=== PATIENT | male | born 1970 | race Caucasian/White ===

== ENCOUNTER 2023-01-09 07:39 | Observation (INO) | payer BC, SELFPAY ==
[2023-01-09] VITALS (27 sets, daily range): BP systolic 113–145; BP diastolic 76–109; PULSE 92–125; RESP 12–50; TEMP 36.6–37.2; O2SAT 94–100; BMI 27.4
--- NOTE | ~2023-01-09 | XR_ITS ---
EXAMINATION: XR chest 1V portable DATE: 01/09/2023 09:28 INDICATION: Dyspnea. TECHNIQUE: A single frontal view of the chest was obtained. COMPARISON: CT abdomen and pelvis 01/09/2023 FINDINGS: The chest demonstrates clear lungs without pneumonia, pleural effusion, or pneumothorax. Th e heart size is normal. Median sternotomy wires and mediastinal surgical clips are seen, likely from prior coronary artery bypass grafting. IMPRESSION: 1. No acute cardiopulmonary disease. Reviewed, dictated and finalized at location A.
--- NOTE | ~2023-01-09 | CT_ITS ---
EXAMINATION: CT abdomen pelvis w con DATE: 01/09/2023 09:17 INDICATION: Abdominal pain TECHNIQUE: Computed tomography (CT) of the abdomen and pelvis was performed with 100 mL Omnipaque-350 intravenous contrast. Automated exposure control and iterative reconstruction technique were employe d. The dose-length product was 505.13 mGy-cm. COMPARISON: None FINDINGS: Lung bases are clear. Heart size is normal. Aortic valve calcification. No pericardial or pleural eff usion. Median sternotomy wires likely related to coronary artery bypass grafting. Small sliding-type hiatal hernia. Small calcified paraesophageal lymph node consistent with old granulomatous disease. P rominent diffuse hepatic steatosis. Suggestion of a few tiny gallstones layering in the dependent nec k of the otherwise normal-appearing gallbladder with no wall thickening or cholecystic inflammatory s tranding. Spleen, pancreas, bilateral adrenal glands and kidneys are normal. Postoperative change of prior appendectomy with suture line along the tip the cecum. No bowel obstruction. Bladder is normal. No free intraperitoneal gas or fluid. No pathologically enlarged abdominal or pelvic lymphadenopathy . L5 spondylolysis with bilateral pars intra-articular is defects and 7 mm anterolisthesis L5 on S1. IMPRESSION: 1. No acute intra-abdominal/pelvic process. 2. Small sliding-type hiatal hernia. 3. Suggestion of tiny gallstones at the dependent neck of the gallbladder without findings of acute c holecystitis or biliary ductal dilation. Reviewed, dictated and finalized at location B. IMPRESSION: 1. No acute intra-abdominal/pelvic process. 2. Small sliding-type hiatal hernia. 3. Suggestion of tiny gallstones at the dependent neck of the gallbladder witho ut findings of acute cholecystitis or biliary ductal dilation.
--- NOTE | ~2023-01-09 | CT_ITS ---
EXAMINATION: CT brain wo con DATE: 01/09/2023 11:56 INDICATION: Altered mental status TECHNIQUE: Computed tomography (CT) of the head was performed without intravenous contrast. Sagittal and coronal reconstructions were performed. The mA was adjusted according to patient size. Iterative reconstruction technique was employed. The dose-length product was 681.00 mGy-cm. COMPARISON: None FINDINGS: No acute intracranial hemorrhage, acute infarction or abnormal extra axial fluid collection. There is mild scattered white matter hypoattenuation consistent with chronic small vessel ischemic disease. Ventricles are normal and symmetric. No mass/mass effect. Scattered mild mucosal thickening in the pa ranasal sinuses. The orbits and mastoid air cells are normal. IMPRESSION: 1. Mild scattered white matter hypoattenuation consistent with chronic small vessel ischemic disease. No other acute intracranial process. Reviewed, dictated and finalized at location B. IMPRESSION: 1. Mild scattered white matter hypoattenuation consistent with chronic small ve ssel ischemic disease. No other acute intracranial process.
--- NOTE | ~2023-01-09 | US_ITS ---
US abdomen limited INDICATION: Elevated liver function tests. PROCEDURE: Realtime right upper abdominal ultrasound. Study limited due to patient immobility and francisco ble to roll and decubitus view COMPARISON: No prior studies for comparison. FINDINGS: The pancreas is normal without focal mass or pancreatic ductal dilation. Liver echotexture is increased, consistent with fatty infiltration. There is normal directional flow in the portal ve in. There are possible gallstones, although evaluation limited due to immobility. Common bile duct measu res 2.5 mm. No sonographic Nava's sign. IMPRESSION: 1: Possible cholelithiasis. Limited study. 2: Hepatic steatosis. Reviewed, dictated and finalized at location A.
--- NOTE | 2023-01-09 07:47 | ED.GENADULT ---
HPI - General Adult General Chief complaint: Arrhythmia/Palpitations Stated complaint: increased HR Source: RN notes reviewed History of Present Illness HPI narrative: Patient presents emergency department from job interview via EMS for heart palpitations and shaking. Patient states he is from [facility] and came to the area to work at the [employer]. States that the work at the [employer] you have to have a physical evaluation screening patient had gone to his screening and was noted to have tremoring and shaking and states he had a heart palpitations and felt weak at that time was transported emergency department for further evaluation. Patient states that he has been having shaking his arms and his legs he denies any vision changes he denies any numbness or tingling he denies any chest pain shortness of breath abdominal pain nausea vomiting diarrhea. The patient does states he has a history of alcohol use and drinks approximately 4-6 beers daily but drinks heavier on the weekends states that he quit drinking 2 months ago. He states that you cannot have any signs of alcohol use or smell like alcohol when you go for your job interview he states he has not worked for the past 4-month Related Data Allergies Allergy/AdvReac Type Severity Reaction Status Date / Time No Known Allergies Allergy Verified 01/09/23 07:52 Review of Systems Review of Systems: Gen.: Denies fevers or chills Eyes: Denies eye pain or visual change ENT: Denies congestion Respiratory: Denies shortness of breath or cough CV: Denies chest pain or palpitations GI: Denies abdominal pain nausea, emesis or diarrhea Musculoskeletal: Denies back pain or muscle pain Neuro: See HPI Skin: Denies rash Except as documented, all other systems reviewed and negative [facility] Past Medical History Medical History (Updated 01/09/23 @ 17:21 by Ronny Woodruff DO) Patient denies significant medical history Social History Social History (Updated 01/09/23 @ 17:16 by Ronny Woodruff DO) Smoking status: Never smoker Alcohol intake: current Alcohol use details: Drinks 4-6 beers daily Exam Narrative: APPEARANCE: No acute distress, nontoxic, resting in bed EYES: EOMI, PERRL HEENT: Normocephalic, atraumatic, OMM Neck: Supple no tenderness to palpation full range of motion neck without pain known meningiomas RESPIRATORY: No respiratory distress Clear to auscultation bilaterally with no rhonchi wheezing or rales. CARDIOVASCULAR: Tachycardic and regular without murmurs rubs or gallops. ABDOMINAL: Soft, nontender, nondistended, no rebound or guarding MUSCULOSKELETAl: Moves all extremities. No clubbing, cyanosis or edema. NEURO: Awake and alert x 4 Following commands, speech normal, tremoring in the bilateral upper and lower extremities SKIN:: Warm, dry. No rashes lesions or abrasions PSYCHIATRIC: Normal affect/mood, Course Course Emergency Course: Had extensive conversation with the patient all the patient does admit to alcohol use states he quit 2 months ago patient with signs and symptoms of alcohol withdrawal in the emergency department. The patient was given Ativan he will have some hallucinations at times but remains awake and alert x4 Called and discussed with Dr. Pozo for ICU presentation work-up discussed presentation and work-up discussed concerns of alcohol withdrawal and possible worsening symptoms and need for ICU placement. At this time Dr. Pozo does not believe the patient requires ICU placement and believes the patient may be placed on IMU Discussed with SHANNAN Durant for Dr. andersen presentation work-up agrees with admission at this time SHANNAN Durant came down to see the patient in the emergency department. Additional medications were ordered by her for Valium Discussed with patient and family results of workup and diagnosis. Discussed need for admission. Patient and family understand and agree to current treatment plan Vital Signs Vital signs: Sima
--- NOTE | 2023-01-09 07:50 | PC.NURSE ---
Dr. Woodruff at bedside to assess pt.
--- NOTE | 2023-01-09 07:50 | ECG_ITS ---
Measurements Intervals [place] Rate: 106 P: 74 KS: 155 QRS: 33 QRSD: 110 T: 54 QT: 357 QTc: 476 Interpretive Statements SINUS TACHYCARDIA POSSIBLE LEFT ATRIAL ENLARGEMENT BORDERLINE ST-T WAVE ABNORMALITY- INF/HIGH LAT LEADS BASELINE ARTIFACT- I, II, III, AVR, AVL, AVF, V1-V6 BORDERLINE ECG NO PREVIOUS ECG AVAILABLE FOR COMPARISON Electronically Signed On 01-09-2023 9:43:08 CDT by Christian Bejarano D.O.
[2023-01-09] MEDS: LORazepam INJ (*CRX) 2 MG/ML VIAL 1 MG IV PUSH ×2 (08:13→12:23)
[2023-01-09] MEDS: SODIUM CHLORIDE 0.9% IV 1,000 ML 999 ML IV CONT ×2 (08:14→11:32)
[2023-01-09 08:40] LABS: Basophils Percent Auto 0.7 % (0.2-1.2); Eosinophils Percent Auto 0.7 % (0-4.4); Hematocrit 41.6 % (42.0-52.0); Hemoglobin 15.3 g/dL (14.0-18.0); INR 1.1; Immature Granulocyte Percent A 1.9 % (0-0.5); Immature Platelet Fraction Pct 9.1 % (0.9-11.2); Lymphocytes Absolute Auto 0.25 K/mm3 (0.9-3.2); Lymphocytes Percent Auto 4.6 % (18.3-44.2); Mean Corpuscular HGB Conc 36.8 g/dl (32-36); Mean Corpuscular Volume 95.2 fl (80-100); Mean Platelet Volume 10.5 fl (7.4-10.4); Monocytes Absolute Auto 0.9 K/mm3 (0.1-0.6); Monocytes Percent Auto 16.4 % (2.6-8.5); Neutrophils Absolute Auto 4.1 K/mm3 (1.3-6.7); Neutrophils Percent Auto 75.7 % (45.5-73.1); Platelet Count Result 129 k/mm3 (150-375); Prothrombin Time 13.9 Seconds (11.1-14.7); Red Blood Count 4.37 M/mm3 (4.6-6.20); Red Cell Distribution Width 11.8 % (11.5-14.5); White Blood Count 5.4 K/mm3 (4.5-10.0)
[2023-01-09 08:41] LABS: Alanine Aminotransferase 343 U/L (6-50); Albumin Level 5.3 g/dL (3.5-5.1); Alkaline Phosphatase 107 U/L (38-126); Anion Gap 15 mmol/L (8-16); Aspartate Amino Transferase 226 U/L (17-59); Bilirubin,Total 4.9 mg/dL (0.2-1.3); Blood Urea Nitrogen 12 mg/dL (9-20); Calcium 10.4 mg/dL (8.4-10.2); Carbon Dioxide 22 mmol/L (22-30); Chloride 87 mmol/L (98-107); Estimated CRCL calculation 89 ml/min; Estimated Glomerular Filt Rate > 60; Glucose 87 mg/dL (65-110); Lipase 134 U/L (23-300); Partial Thromboplastin Time 25.1 SECONDS (22.3-36.8); Potassium 3.1 mmol/L (3.4-5.0); Sodium 124 mmol/L (137-145)
--- NOTE | 2023-01-09 08:48 | PC.NURSE ---
Attempted to stand patient to ambulate to the BR. Patient unable to walk as he is very shaky and jittery. Patient instructed not to get out of bed. Urinal provided.
[2023-01-09 08:52] LABS: Troponin I < 0.012 ng/mL (0.000-0.034)
--- NOTE | 2023-01-09 09:09 | PC.NURSE ---
Patient off unit to CT.
[2023-01-09 09:26] LABS: Creatine Kinase 314 U/L (55-170); Magnesium 1.6 mg/dL (1.6-2.3)
[2023-01-09 09:35] LABS: Ethanol < 10 mg/dL (<10)
[2023-01-09 10:13] LABS: Lactic Acid Reflex 1.8 mmol/L (0.7-2.0)
[2023-01-09] MEDS: POTASSIUM CHLORIDE 20 MEQ TABLET 40 MEQ PO (10:13)
--- NOTE | 2023-01-09 10:27 | PC.NURSE ---
Entered room to obtain urine sample. Patient was sitting in the stretcher and had removed gown and all blankets. He had pulled out PIV. No active bleeding noted. Patient oriented but appears to be hallucinating. He was drinking from a non-existent cup. Reoriented and bed alarm placed for safety.
[2023-01-09 10:44] LABS: Alveolar/Arterial O2 Gradient 38.2 mmHg; Base Excess ABG -5.6 mEq/l (+/-2.0); Carboxyhemoglobin 0.2 % THb (0-2.0); Fractional Inspired Oxygen 21 %; HCO3 ABG 16.1 mEq/l (22.0-26.0); Methemoglobin ABG 0.4 %THb (0-1.5); Oxygen Content ABG 20.4 %vol (16.0-22.0); Oxygen Saturation ABG 96.9 % (95.0-100.0); Oxyhemoglobin 95.2 % THb (90.0-100.0); PCO2 ABG 23.5 mmHg (35.0-45.0); PO2 ABG 83.4 mmHg (80.0-100.0); PO2 FiO2 Ratio Arterial Blood 3.97 %; Reduced Hemoglobin 4.2 %THb (0-5.0); Total Hemoglobin 15.2 g/dL (12.0-18.0); pH ABG 7.454 (7.350-7.450)
[2023-01-09 10:45] LABS: Modified Allen's Test Pass; Site Drawn RIGHT RADIAL
[2023-01-09 10:50] LABS: Amphetamine Screen Urine Negative (Negative); Barbiturate Screen Urine Negative (Negative); Benzodiazepines Screen Urine Negative (Negative); Cannabinoid Screen Urine Negative (Negative); Cocaine Screen Urine Negative (Negative); Methadone Screen Urine Negative (Negative); Opiate Screen Urine Negative (Negative); Phencyclidine Screen Urine Negative (Negative)
[2023-01-09 10:54] LABS: Troponin I < 0.012 ng/mL (0.000-0.034)
--- NOTE | 2023-01-09 11:05 | PC.NURSE ---
Patient report given to REGAN Jara. All questions answered and care of patient transferred.
[2023-01-09 11:12] LABS: Appearance Urine Clear (Clear); Bacteria Urine None Seen /hpf; Bilirubin Urine Negative (Negative); Blood Urine Trace (Negative); Color Urine Yellow (Yellow); Glucose Urine UA Negative (Negative); Ketones Urine 1+ mg/dL (Negative); Leukocyte Esterase Ur Negative LEU/UL (Negative); Need Manual Microscopic Reviewed; Nitrate Urine Negative (Negative); Non Pathogenic Casts 0-2; Protein Urine Negative (Negative); RBC Urine 0-2 /hpf (0-2); Specific Grav Ur 1.008 (1.001-1.035); Squamous Epithelial Cell Urine None seen /hpf (Few); Urobilinogen Urine 0.2 mg/dL (<2.0); WBC Urine 0-5 /hpf
[2023-01-09 11:16] LABS: Add Urine Microscopic? YES
[2023-01-09] MEDS: LORazepam INJ (*CRX) 2 MG/ML VIAL 0.5 MG IV PUSH (11:33)
[2023-01-09] MEDS: THIAMINE HCL 200 MG/2 ML VIAL 100 MG IV PUSH (12:01)
[2023-01-09 12:31] LABS: Ammonia 33 umol/L (9-30)
--- NOTE | 2023-01-09 13:00 | PM.IMHP ---
H&P: HPI History of Present Illness Date/Time: 01/09/23 13:00 Chief Complaint: Weakness and palpitations. Narrative: This is a 52-year-old male with history of alcohol abuse who presented to the emergency department via EMS from work for evaluation of weakness and palpitations. He is alert and oriented x3 (a bit confused regarding situation) and provides the following history. He reports being in his usual state of health when he got up this morning. 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 He was tremulous on arrival and as his time in the ED went on he became increasingly tremulous, confused, diaphoretic, and he appeared to be having visual hallucinations as well. With further questioning he did admit to a history of alcohol abuse and his clinical picture was consistent with alcohol withdrawal. He was given IV lorazepam and diazepam in the ED with some improvement and he is being admitted to IMU for close monitoring for suspected alcohol withdrawal. The patient maintains he has not had alcohol for 2 months, however. On the floor he developed worsening tremors, hallucinations, and confusion despite IV benzodiazepines and he was given phenobarbital 130 mg IV x1 with improvement. He is now sleeping but is easily arousable with stable vital signs. In the ED his labs were significant for a WBC of 5.4, hemoglobin 15.3, platelets 129, INR 1.1, sodium 124, potassium 3.1, chloride 87, carbon dioxide 22, BUN 12, creatinine 0.80, lactic acid 1.8, magnesium 1.6, lipase 134, total bilirubin 4.9, AST 226, ALT 343, alkaline phosphatase 107, ammonia 33, total CK 314. Ethyl alcohol level was less than 10. Urine drug screen negative. Brain CT and chest x-ray showed no acute findings. CT of the abdomen and pelvis showed findings suggestive of tiny gallstones at the dependent neck of the gallbladder noted without findings of acute cholecystitis or biliary ductal dilatation. Review of Systems Review of Systems: 12 systems were reviewed. He denies fever. No recent cold or flu symptoms. No headache or neck ache. No chest pain or shortness of breath. No cough. He denies nausea, vomiting, diarrhea, and dysuria. Except as documented, all other systems were reviewed and are negative. PMFSH Past Medical History Medical History Alcohol abuse Surgical History Surgical History History of aortic valve replacement with bioprosthetic valve History of appendectomy Family History Family History Other Family history unknown Social History Social History Social History: Surrogate medical decision maker: Amando Ruby, son. Code status: Full code. Smoking status: Never smoker Alcohol intake: current Drinks per week: 20 Alcohol use details: Drinks 4-6 beers daily. Substance use: never Substance use type: does not use Additional living arrangements comments: From the [place] area, living in [place] for the past 3.5 years. Not . Son in [place]. Spiritual care concerns: No Meds Home Medications and Allergies Home Medications Medication Instructions Recorded Confirmed Type No Home Medications 01/10/23 01/10/23 History Allergies Allergy/AdvReac Type Severity Reaction Status Date / Time No Known Allergies Allergy Verified 01/09/23 07:52 Vital Signs Vital Signs - 24 hr 01/09/23 07:40 01/09/23 08:01 01/09/23 08:02 Temperature 97.8 F Pulse Rate 106 H 106 H Respiratory Rate 28 H Blood Pressure 137/94 H Pulse Oximetry 99 Oxygen Delivery Room Air Room Air 01/09/23 07:46 01/09/23 08:00 01/09/23 08:01 Temperature Pulse Rate 112 H 112 H 110 H Respiratory Rate 25 H 15 18 Blood Pressure 144/76 H Puls
[2023-01-09] MEDS: diazePAM INJ (*CRX) 10 MG/2 ML SYRINGE 5 MG IV PUSH (13:32)
[2023-01-09] MEDS: SODIUM CHLORIDE 0.9% IV 1,000 ML 125 ML IV CONT (13:32)
[2023-01-09] MEDS: chlordiazePOXIDE (*CRX) 25 MG CAPSULE PO (14:20)
[2023-01-09 14:50] LABS: Troponin I < 0.012 ng/mL (0.000-0.034)
[2023-01-09] MEDS: LORazepam INJ (*CRX) 2 MG/ML VIAL IV PUSH (16:35)
--- NOTE | 2023-01-09 17:49 | ADMGEN ---
This patient, Theo Ruby, was admitted to Intensive Care Unit-3. Patient/family oriented to hospital policies and general routines including ID bracelet, bed and alarms, visiting hours, pain management, procedures, bathroom and other care routines, personal items, smoking policy, room service/diet, and visiting hours. Information on how to activate the Rapid Response Team has been discussed. Patient/Family are encouraged to report perceived risks to care and to ask questions if they do not understand what they are told or what they should do.
[2023-01-09] MEDS: LORazepam (*CRX) 1 MG TABLET 4 MG PO ×2 (17:59→22:50)
[2023-01-09] MEDS: LACTULOSE 20 GM/30 ML UDC PO (18:15)
[2023-01-09] MEDS: PHENobarbitaL sodium (*CRX) 130 MG/ML VIAL IV PUSH (19:08)
[2023-01-09 19:24] LABS: Anion Gap 14 mmol/L (8-16); Blood Urea Nitrogen 10 mg/dL (9-20); CRP 1.5 mg/dL (<1.0); Carbon Dioxide 15 mmol/L (22-30); Chloride 107 mmol/L (98-107); Estimated CRCL calculation 90 ml/min; Estimated Glomerular Filt Rate > 60; Glucose 61 mg/dL (65-110); Magnesium 1.9 mg/dL (1.6-2.3); Potassium 3.4 mmol/L (3.4-5.0); Sodium 136 mmol/L (137-145)
[2023-01-09] MEDS: THIAMINE 500 MG/NS 100 ML 500 MG/100 ML BAG 200 MG IVPB (20:23)
[2023-01-09] MEDS: DEXTROSE 50% 25 GM/50 ML SYRINGE (20:25)
[2023-01-09 21:04] LABS: Glucose Point of Care 93 mg/dl (65-105)
[2023-01-09] MEDS: DEXTROSE 5% 1,000 ML 1,000 ML 100 ML IV CONT (21:09)
[2023-01-09] MEDS: DEXTROSE 50% 25 GM/50 ML SYRINGE IV PUSH (21:10)
[2023-01-09 23:32] LABS: Anion Gap 12 mmol/L (8-16); Blood Urea Nitrogen 9 mg/dL (9-20); Calcium 8.8 mg/dL (8.4-10.2); Carbon Dioxide 18 mmol/L (22-30); Chloride 102 mmol/L (98-107); Creatine Kinase 582 U/L (55-170); Estimated CRCL calculation 104 ml/min; Estimated Glomerular Filt Rate > 60; Glucose 73 mg/dL (65-110); Potassium 3.1 mmol/L (3.4-5.0); Sodium 132 mmol/L (137-145)
[2023-01-09 23:35] LABS: Acetaminophen < 10 ug/mL (10-30); Salicylate < 1.0 mg/dL (2-20)
[2023-01-09] MEDS: PHENobarbitaL sodium (*CRX) 130 MG/ML VIAL 100 MG IV PUSH (23:44)
[2023-01-09 23:51] LABS: Glucose Point of Care 68 mg/dl (65-105)
[2023-01-10] VITALS (12 sets, daily range): BP systolic 110–164; BP diastolic 74–102; PULSE 81–116; RESP 16–31; TEMP 36.4–37.6; O2SAT 97–100
[2023-01-10 00:01] LABS: Glucose Point of Care 116 mg/dl (65-105)
[2023-01-10 01:08] LABS: Folic Acid > 20.0 ng/mL (2.76->20)
[2023-01-10] MEDS: POTASSIUM CHLORIDE 20 MEQ TABLET 40 MEQ PO (03:23)
[2023-01-10] MEDS: LORazepam (*CRX) 1 MG TABLET 4 MG PO (03:23)
[2023-01-10 06:22] LABS: Basophils Absolute Auto 0.1 K/mm3 (0.0-0.1); Eosinophils Absolute Auto 0.2 K/mm3 (0-0.3); Eosinophils Percent Auto 4.2 % (0-4.4); Hematocrit 40.3 % (42.0-52.0); Hemoglobin 14.5 g/dL (14.0-18.0); Immature Granulocyte Absolute 0.06 K/mm3 (0.00-0.031); Immature Granulocyte Percent A 1.5 % (0-0.5); Lymphocytes Absolute Auto 0.39 K/mm3 (0.9-3.2); Lymphocytes Percent Auto 9.5 % (18.3-44.2); Mean Corpuscular Hemoglobin 35.4 pg (26-34); Mean Corpuscular Volume 98.3 fl (80-100); Mean Platelet Volume 9.7 fl (7.4-10.4); Monocytes Absolute Auto 0.9 K/mm3 (0.1-0.6); Monocytes Percent Auto 20.8 % (2.6-8.5); Neutrophils Absolute Auto 2.5 K/mm3 (1.3-6.7); Platelet Count Result 113 k/mm3 (150-375); Red Cell Distribution Width 12.2 % (11.5-14.5); White Blood Count 4.1 K/mm3 (4.5-10.0)
[2023-01-10 06:24] LABS: Glucose Point of Care 75 mg/dl (65-105)
[2023-01-10] MEDS: DEXTROSE 5% 1,000 ML 1,000 ML 100 ML IVPB (06:28)
[2023-01-10 06:34] LABS: Alanine Aminotransferase 266 U/L (6-50); Albumin Level 4.6 g/dL (3.5-5.1); Alkaline Phosphatase 98 U/L (38-126); Anion Gap 10 mmol/L (8-16); Aspartate Amino Transferase 163 U/L (17-59); Bilirubin,Total 3.4 mg/dL (0.2-1.3); Blood Urea Nitrogen 6 mg/dL (9-20); Carbon Dioxide 21 mmol/L (22-30); Chloride 104 mmol/L (98-107); Estimated CRCL calculation 104 ml/min; Estimated Glomerular Filt Rate > 60; Glucose 74 mg/dL (65-110); Potassium 3.8 mmol/L (3.4-5.0); Sodium 135 mmol/L (137-145)
[2023-01-10 06:35] LABS: Ammonia 14 umol/L (9-30)
[2023-01-10 09:07] LABS: Creatine Kinase 500 U/L (55-170)
[2023-01-10] MEDS: DEXTROSE 5% 1,000 ML 1,000 ML 100 ML IV CONT (09:17)
[2023-01-10] MEDS: FOLIC ACID 1 MG/0.2 ML INJ IV PUSH (09:17)
[2023-01-10] MEDS: THIAMINE HCL 200 MG/2 ML VIAL 100 MG IV PUSH (09:18)
[2023-01-10 13:00] LABS: Glucose Point of Care 87 mg/dl (65-105)
--- NOTE | 2023-01-10 14:25 | PM.IMPN ---
Progress Note: A&P Assessment and Plan (1) Altered mental status: Code(s): R41.82 - Altered mental status, unspecified Status: Acute Assessment and Plan: He is technically alert and oriented x3 although he is confused regarding situation and is having visual hallucinations. Clinically he appears to be going through alcohol withdrawal though he continues to state he has not had alcohol for 2 months. Alcohol level was undetectable and his drug screen was negative. Cannot rule out ingestion of another drug which is not tested for however he denies that as well. Wernicke encephalopathy is a possibility with the confusion though a thorough neurologic exam is not able to be performed at this time due to his confusion. There are no physical exam, lab, or radiographic findings to suggest infection. Ammonia is mildly elevated at 33 and he has been given a dose of lactulose. Ashia 500 mg IV x1 has been given. TSH is within normal limits. If no improvement, consider brain MRI and LP. (2) Alcohol withdrawal: Code(s): F10.939 - Alcohol use, unspecified with withdrawal, unspecified Status: Acute Assessment and Plan: Clinically he appears to be going through alcohol withdrawal. IV benzodiazepines helped somewhat but he still has signs of severe withdrawal and he has improved significantly with phenobarbital 130 mg IV x1. Continue CIWA protocol. (3) Alcohol abuse: Code(s): F10.10 - Alcohol abuse, uncomplicated Status: Acute Assessment and Plan: Patient admitted to history of alcohol abuse but continues to state he has not had alcohol for 2 months. Continue thiamine and folic acid supplementation. (4) Hypokalemia: Code(s): E87.6 - Hypokalemia Status: Acute Assessment and Plan: Potassium will be replaced and monitored. (5) Hyponatremia: Code(s): E87.1 - Hypo-osmolality and hyponatremia Status: Acute Assessment and Plan: He looks dry on exam and is being hydrated. (6) Hyperammonemia: Code(s): E72.20 - Disorder of urea cycle metabolism, unspecified Status: Acute Assessment and Plan: Ammonia slightly elevated. Lactulose x1 given. Repeat in a.m. (7) Transaminitis: Code(s): R74.01 - Elevation of levels of liver transaminase levels Status: Acute Assessment and Plan: Bilirubin, AST, and ALT all elevated. Alkaline phosphatase is normal. Suggestion of tiny gallstones in the dependent gallbladder neck noted on CT though his abdominal exam is unremarkable. May be related to alcoholic liver disease. Check hepatitis panel and right upper quadrant ultrasound. Continue to monitor. (8) Gallstones: Code(s): K80.20 - Calculus of gallbladder without cholecystitis without obstruction Status: Acute Assessment and Plan: Noted on imaging. Do not think this is an acute issue. Plan 1) Altered mental status, resolved likely from Alcohol withdrawal He is technically alert and oriented x3 although he is confused regarding situation and is having visual hallucinations. Clinically he appears to be going through alcohol withdrawal though he continues to state he has not had alcohol for 2 months. Alcohol level was undetectable and his drug screen was negative. Cannot rule out ingestion of another drug which is not tested for however he denies that as well. Wernicke encephalopathy is a possibility with the confusion though a thorough neurologic exam is not able to be performed at this time due to his confusion. There are no physical exam, lab, or radiographic findings to suggest infection. Ammonia is mildly elevated at 33 and he has been given a dose of lactulose. Ashia 500 mg IV x1 has been given. TSH is within normal limits. If no improvement, consider brain MRI and LP. (2) Alcohol withdrawal Clinically he appears to be going through alcohol withdrawal. continue CIWA protocol, folic and b12 above nor
--- NOTE | 2023-01-10 14:56 | PM.IMPN ---
Progress Note: A&P Assessment and Plan (1) Altered mental status: Code(s): R41.82 - Altered mental status, unspecified Status: Acute Assessment and Plan: He is technically alert and oriented x3 although he is confused regarding situation and is having visual hallucinations. Clinically he appears to be going through alcohol withdrawal though he continues to state he has not had alcohol for 2 months. Alcohol level was undetectable and his drug screen was negative. Cannot rule out ingestion of another drug which is not tested for however he denies that as well. Wernicke encephalopathy is a possibility with the confusion though a thorough neurologic exam is not able to be performed at this time due to his confusion. There are no physical exam, lab, or radiographic findings to suggest infection. Ammonia is mildly elevated at 33 and he has been given a dose of lactulose. Ashia 500 mg IV x1 has been given. TSH is within normal limits. If no improvement, consider brain MRI and LP. (2) Alcohol withdrawal: Code(s): F10.939 - Alcohol use, unspecified with withdrawal, unspecified Status: Acute Assessment and Plan: Clinically he appears to be going through alcohol withdrawal. IV benzodiazepines helped somewhat but he still has signs of severe withdrawal and he has improved significantly with phenobarbital 130 mg IV x1. Continue CIWA protocol. (3) Alcohol abuse: Code(s): F10.10 - Alcohol abuse, uncomplicated Status: Acute Assessment and Plan: Patient admitted to history of alcohol abuse but continues to state he has not had alcohol for 2 months. Continue thiamine and folic acid supplementation. (4) Hypokalemia: Code(s): E87.6 - Hypokalemia Status: Acute Assessment and Plan: Potassium will be replaced and monitored. (5) Hyponatremia: Code(s): E87.1 - Hypo-osmolality and hyponatremia Status: Acute Assessment and Plan: He looks dry on exam and is being hydrated. (6) Hyperammonemia: Code(s): E72.20 - Disorder of urea cycle metabolism, unspecified Status: Acute Assessment and Plan: Ammonia slightly elevated. Lactulose x1 given. Repeat in a.m. (7) Transaminitis: Code(s): R74.01 - Elevation of levels of liver transaminase levels Status: Acute Assessment and Plan: Bilirubin, AST, and ALT all elevated. Alkaline phosphatase is normal. Suggestion of tiny gallstones in the dependent gallbladder neck noted on CT though his abdominal exam is unremarkable. May be related to alcoholic liver disease. Check hepatitis panel and right upper quadrant ultrasound. Continue to monitor. (8) Gallstones: Code(s): K80.20 - Calculus of gallbladder without cholecystitis without obstruction Status: Acute Assessment and Plan: Noted on imaging. Do not think this is an acute issue. Plan 1) Altered mental status, resolving likely from Alcohol withdrawal He is technically alert and oriented x3 although he is confused regarding situation and is having visual hallucinations. Clinically he appears to be going through alcohol withdrawal though he continues to state he has not had alcohol for 2 months. Alcohol level was undetectable and his drug screen was negative. Cannot rule out ingestion of another drug which is not tested for however he denies that as well. Wernicke encephalopathy is a possibility with the confusion though a thorough neurologic exam is not able to be performed at this time due to his confusion. There are no physical exam, lab, or radiographic findings to suggest infection. Ammonia is mildly elevated at 33 and he has been given a dose of lactulose. Ashia 500 mg IV x1 has been given. TSH is within normal limits. If no improvement, consider brain MRI and LP. (2) Alcohol withdrawal continue CIWA protocol, folic and b12 above normal contineu thiamine (3) Alcohol abuse Patient adm
[2023-01-10 15:53] LABS: Hepatitis B Surface Antigen Negative (Negative)
[2023-01-10 15:59] LABS: HAV RESULT Negative (Negative); Hepatitis B Core IgM Result Negative (Negative)
[2023-01-10 16:10] LABS: Hepatitis C Virus Antibody Negative (Negative)
[2023-01-10] MEDS: SODIUM CHLORIDE 0.9% IV 1,000 ML 75 ML IV CONT (17:32)
[2023-01-10 18:37] LABS: Glucose Point of Care 205 mg/dl (65-105)
--- NOTE | 2023-01-10 19:55 | PC.NURSE ---
This patient, Theo Ruby, was transferred to [[id number]] on 01/10/23 at 1950. Personal belongings sent with patient. Report given to [Gemma Han RN]. Appropriate documentation sent with patient.
--- NOTE | 2023-01-10 21:29 | PC.NURSE ---
This patient, Theo Ruby, was received from ICU-3 on 01/10/23 at 1955. Patient/family oriented to unit policies and routines.
[2023-01-11] VITALS (14 sets, daily range): BP systolic 119–147; BP diastolic 74–93; PULSE 83–112; RESP 16–20; TEMP 36.3–37.2; O2SAT 96–98
[2023-01-11 00:33] LABS: Glucose Point of Care 107 mg/dl (65-105)
[2023-01-11 05:00] LABS: Basophils Absolute Auto 0.1 K/mm3 (0.0-0.1); Basophils Percent Auto 1.5 % (0.2-1.2); Eosinophils Absolute Auto 0.2 K/mm3 (0-0.3); Eosinophils Percent Auto 4.1 % (0-4.4); Hematocrit 39.4 % (42.0-52.0); Hemoglobin 14.6 g/dL (14.0-18.0); Immature Granulocyte Absolute 0.05 K/mm3 (0.00-0.031); Immature Granulocyte Percent A 1.3 % (0-0.5); Lymphocytes Absolute Auto 0.69 K/mm3 (0.9-3.2); Lymphocytes Percent Auto 17.6 % (18.3-44.2); Mean Corpuscular HGB Conc 37.1 g/dl (32-36); Mean Corpuscular Hemoglobin 35.3 pg (26-34); Mean Corpuscular Volume 95.2 fl (80-100); Mean Platelet Volume 9.3 fl (7.4-10.4); Monocytes Absolute Auto 0.8 K/mm3 (0.1-0.6); Monocytes Percent Auto 21.2 % (2.6-8.5); Neutrophils Absolute Auto 2.1 K/mm3 (1.3-6.7); Neutrophils Percent Auto 54.3 % (45.5-73.1); Platelet Count Result 148 k/mm3 (150-375); Red Blood Count 4.14 M/mm3 (4.6-6.20); Red Cell Distribution Width 12.2 % (11.5-14.5); White Blood Count 3.9 K/mm3 (4.5-10.0)
[2023-01-11 05:16] LABS: Alanine Aminotransferase 219 U/L (6-50); Albumin Level 4.1 g/dL (3.5-5.1); Alkaline Phosphatase 92 U/L (38-126); Anion Gap 4 mmol/L (8-16); Aspartate Amino Transferase 105 U/L (17-59); Bilirubin,Total 2.1 mg/dL (0.2-1.3); Calcium 9.2 mg/dL (8.4-10.2); Carbon Dioxide 24 mmol/L (22-30); Chloride 104 mmol/L (98-107); Estimated CRCL calculation 104 ml/min; Estimated Glomerular Filt Rate > 60; Glucose 110 mg/dL (65-110); Magnesium 1.8 mg/dL (1.6-2.3); Potassium 2.8 mmol/L (3.4-5.0); Sodium 132 mmol/L (137-145)
[2023-01-11 05:23] LABS: Blood Urea Nitrogen < 2 mg/dL (9-20)
[2023-01-11] MEDS: SODIUM CHLORIDE 0.9% IV 1,000 ML 75 ML IV CONT ×2 (06:45→21:18)
[2023-01-11] MEDS: POTASSIUM CHLORIDE 20 MEQ TABLET 80 MEQ PO (06:45)
[2023-01-11] MEDS: MAGNESIUM SULF 2 GM/WATER 50ML 2 GM/50 ML BAG IVPB (06:45)
[2023-01-11] MEDS: THIAMINE HCL 100 MG TABLET PO (08:58)
[2023-01-11] MEDS: FOLIC ACID 1 MG/0.2 ML INJ IV PUSH (08:58)
[2023-01-11] MEDS: ENOXAPARIN 40 MG/0.4 ML SYRINGE SUB-Q (08:59)
[2023-01-11 09:28] LABS: Anion Gap 6 mmol/L (8-16); Calcium 8.8 mg/dL (8.4-10.2); Carbon Dioxide 21 mmol/L (22-30); Chloride 104 mmol/L (98-107); Estimated CRCL calculation 122 ml/min; Estimated Glomerular Filt Rate > 60; Glucose 139 mg/dL (65-110); Magnesium 2.5 mg/dL (1.6-2.3); Potassium 3.3 mmol/L (3.4-5.0); Sodium 131 mmol/L (137-145)
[2023-01-11 09:32] LABS: Blood Urea Nitrogen < 2 mg/dL (9-20)
[2023-01-11] MEDS: POTASSIUM CHLORIDE 20 MEQ TABLET 40 MEQ PO (10:54)
[2023-01-11 11:43] LABS: Glucose Point of Care 105 mg/dl (65-105)
--- NOTE | 2023-01-11 16:26 | PM.IMPN ---
Progress Note: A&P Assessment and Plan (1) Altered mental status: Code(s): R41.82 - Altered mental status, unspecified Status: Acute Assessment and Plan: He is technically alert and oriented x3 although he is confused regarding situation and is having visual hallucinations. Clinically he appears to be going through alcohol withdrawal though he continues to state he has not had alcohol for 2 months. Alcohol level was undetectable and his drug screen was negative. Cannot rule out ingestion of another drug which is not tested for however he denies that as well. Wernicke encephalopathy is a possibility with the confusion though a thorough neurologic exam is not able to be performed at this time due to his confusion. There are no physical exam, lab, or radiographic findings to suggest infection. Ammonia is mildly elevated at 33 and he has been given a dose of lactulose. Thiamine 500 mg IV x1 has been given. TSH is within normal limits. If no improvement, consider brain MRI and LP. (2) Alcohol withdrawal: Code(s): F10.939 - Alcohol use, unspecified with withdrawal, unspecified Status: Acute Assessment and Plan: Clinically he appears to be going through alcohol withdrawal. IV benzodiazepines helped somewhat but he still has signs of severe withdrawal and he has improved significantly with phenobarbital 130 mg IV x1. Continue CIWA protocol. (3) Alcohol abuse: Code(s): F10.10 - Alcohol abuse, uncomplicated Status: Acute Assessment and Plan: Patient admitted to history of alcohol abuse but continues to state he has not had alcohol for 2 months. Continue thiamine and folic acid supplementation. (4) Hypokalemia: Code(s): E87.6 - Hypokalemia Status: Acute Assessment and Plan: Potassium will be replaced and monitored. (5) Hyponatremia: Code(s): E87.1 - Hypo-osmolality and hyponatremia Status: Acute Assessment and Plan: He looks dry on exam and is being hydrated. (6) Hyperammonemia: Code(s): E72.20 - Disorder of urea cycle metabolism, unspecified Status: Acute Assessment and Plan: Ammonia slightly elevated. Lactulose x1 given. Repeat in a.m. (7) Transaminitis: Code(s): R74.01 - Elevation of levels of liver transaminase levels Status: Acute Assessment and Plan: Bilirubin, AST, and ALT all elevated. Alkaline phosphatase is normal. Suggestion of tiny gallstones in the dependent gallbladder neck noted on CT though his abdominal exam is unremarkable. May be related to alcoholic liver disease. Check hepatitis panel and right upper quadrant ultrasound. Continue to monitor. (8) Gallstones: Code(s): K80.20 - Calculus of gallbladder without cholecystitis without obstruction Status: Acute Assessment and Plan: Noted on imaging. Do not think this is an acute issue. Plan 1) Altered mental status, resolved likely from Alcohol withdrawal however patient wavering between not knowing when his last drink to saying her last drink was 2 weeks ago. continue CIWA protocol (2) Alcohol withdrawal continue CIWA protocol, folic and b12 above normal continue thiamine Hypokalemia k 2.8 replaced, monitor Diarrhea IVF, monitor (3) Alcohol abuse Patient admitted to history of alcohol abuse but continues to state he has not had alcohol for 2 months. Continue thiamine and folic acid supplementation. will counseled about alcohol cessation when responsive (4) Hypokalemia: Potassium will be replaced and monitored. (5) Hyponatremia, resolving Na 135 monitor (6) Hyperammonemia resolved (7) Transaminitis with hepatosteatosis ALT more than AST hepatitis viral panel pending monitor (8) Gallstones: Noted on imaging. Do not think this is an acute issue. DVT prophylaxis Sq lovenox Subjective Date/time seen: 01/11/23 16:26 Patient awake and noted he d
[2023-01-11 23:07] LABS: Glucose Point of Care 111 mg/dl (65-105)
[2023-01-12] VITALS (8 sets, daily range): BP systolic 138–151; BP diastolic 83–89; PULSE 74–97; RESP 16–20; TEMP 36.6–36.9; O2SAT 97–99
[2023-01-12 04:10] LABS: Basophils Absolute Auto 0.1 K/mm3 (0.0-0.1); Basophils Percent Auto 1.9 % (0.2-1.2); Eosinophils Absolute Auto 0.1 K/mm3 (0-0.3); Eosinophils Percent Auto 3.2 % (0-4.4); Hematocrit 37.8 % (42.0-52.0); Hemoglobin 13.9 g/dL (14.0-18.0); Immature Granulocyte Absolute 0.04 K/mm3 (0.00-0.031); Immature Granulocyte Percent A 1.3 % (0-0.5); Lymphocytes Absolute Auto 0.59 K/mm3 (0.9-3.2); Mean Corpuscular HGB Conc 36.8 g/dl (32-36); Mean Corpuscular Hemoglobin 35.7 pg (26-34); Mean Corpuscular Volume 97.2 fl (80-100); Mean Platelet Volume 9.7 fl (7.4-10.4); Monocytes Absolute Auto 0.8 K/mm3 (0.1-0.6); Monocytes Percent Auto 25.5 % (2.6-8.5); Neutrophils Absolute Auto 1.5 K/mm3 (1.3-6.7); Neutrophils Percent Auto 49.1 % (45.5-73.1); Platelet Count Result 165 k/mm3 (150-375); Red Blood Count 3.89 M/mm3 (4.6-6.20); Red Cell Distribution Width 12.4 % (11.5-14.5); White Blood Count 3.1 K/mm3 (4.5-10.0)
[2023-01-12 04:26] LABS: Alanine Aminotransferase 202 U/L (6-50); Albumin Level 3.7 g/dL (3.5-5.1); Alkaline Phosphatase 93 U/L (38-126); Anion Gap 1 mmol/L (8-16); Aspartate Amino Transferase 98 U/L (17-59); Bilirubin,Total 1.4 mg/dL (0.2-1.3); Blood Urea Nitrogen 2 mg/dL (9-20); Calcium 8.6 mg/dL (8.4-10.2); Carbon Dioxide 25 mmol/L (22-30); Chloride 107 mmol/L (98-107); Estimated CRCL calculation 104 ml/min; Estimated Glomerular Filt Rate > 60; Glucose 99 mg/dL (65-110); Potassium 3.4 mmol/L (3.4-5.0); Sodium 133 mmol/L (137-145)
[2023-01-12] MEDS: ENOXAPARIN 40 MG/0.4 ML SYRINGE SUB-Q (08:38)
[2023-01-12] MEDS: THIAMINE HCL 100 MG TABLET PO (08:39)
--- NOTE | 2023-01-12 14:06 | PM.DS ---
DS: Admitting Diagnosis Discharge Date 01/12/2023 Admitting Diagnosis 01/09/2023 DS: Discharge Diagnosis Discharge Diagnosis (1) Altered mental status: Code(s): R41.82 - Altered mental status, unspecified Status: Acute Assessment and Plan: He is technically alert and oriented x3 although he is confused regarding situation and is having visual hallucinations. Clinically he appears to be going through alcohol withdrawal though he continues to state he has not had alcohol for 2 months. Pt is not altered anymore ready for DC (2) Alcohol withdrawal: Code(s): F10.939 - Alcohol use, unspecified with withdrawal, unspecified Status: Acute Assessment and Plan: Clinically he appears to be going through alcohol withdrawal. IV benzodiazepines helped somewhat but he still has signs of severe withdrawal and he has improved significantly with phenobarbital 130 mg IV x1. Continue CIWA protocol. Pt is more stable now ok for DC. (3) Alcohol abuse: Code(s): F10.10 - Alcohol abuse, uncomplicated Status: Acute Assessment and Plan: Patient admitted to history of alcohol abuse but continues to state he has not had alcohol for 2 months. Continue thiamine and folic acid supplementation. (4) Hypokalemia: Code(s): E87.6 - Hypokalemia Status: Acute Assessment and Plan: Potassium will be replaced and monitored. (5) Hyponatremia: Code(s): E87.1 - Hypo-osmolality and hyponatremia Status: Acute Assessment and Plan: Resolved (6) Hyperammonemia: Code(s): E72.20 - Disorder of urea cycle metabolism, unspecified Status: Acute Assessment and Plan: Resolved (7) Transaminitis: Code(s): R74.01 - Elevation of levels of liver transaminase levels Status: Acute Assessment and Plan: .May be related to alcoholic liver disease. (8) Gallstones: Code(s): K80.20 - Calculus of gallbladder without cholecystitis without obstruction Status: Acute Assessment and Plan: Noted on imaging. Do not think this is an acute issue. DS: Summary Hospital Course Hospital Course: 1) Altered mental status, resolved likely from Alcohol withdrawal however patient wavering between not knowing when his last drink to saying her last drink was 2 weeks ago. continue CIWA protocol (2) Alcohol withdrawal continue CIWA protocol, folic and b12 above normal continue thiamine Hypokalemia replaced potassium (3) Alcohol abuse Patient admitted to history of alcohol abuse but continues to state he has not had alcohol for 2 months. Continue thiamine and folic acid supplementation. will counseled about alcohol cessation when responsive (4) Hypokalemia: Potassium will be replaced and monitored. (5) Hyponatremia, resolving Na 135 monitor (6) Hyperammonemia resolved (7) Transaminitis with hepatosteatosis ALT more than AST hepatitis viral panel pending monitor (8) Gallstones: Noted on imaging. Do not think this is an acute issue. Time Spent with Patient Time attestation: Total time spent providing and/or coordinating discharge services:40 minutes for day of DC Exam Narrative: General: Moderately ill-appearing gentleman, consistently trying to get out of bed and picking at things in the air. Weight: 72.5 kg. HEENT: Normocephalic, atraumatic. PERRL, EOMI. Positive scleral icterus. Conjunctiva mildly injected. Tacky mucous membranes. Abrasions on the sides of the tongue. Tongue fasciculations noted. Neck: Supple. Respiratory: Slightly tachypneic, likely due to anxiety. Lungs are clear to auscultation. Cardiovascular: Tachycardic with normal S1-S2. Systolic murmur heard at the upper sternal border. Gastrointestinal: Abdomen is soft, protuberant, and nontender with positive bowel sounds. No obvious organomegaly. Skin: Warm and dry. Extremities: No cyanosis, clubbing, or edema. Radi
== END 2023-01-12 14:43 | disposition home or self-care (01) ==
LOC: ANHED 12:45 → ANHICU 17:21 → ANHIMU 01-12 11:05 → ANHICU 01-13 13:26 → ANHIMU 01-13 13:26
PROVIDERS: Physician Assistant; Admitting Provider Internal Medicine; Emergency Provider Emergency Medicine; Visit Provider Family Medicine
DX: R41.82 Altered mental status, unspecified (principal); F10.139 Alcohol abuse with withdrawal, unspecified; Y90.0 Blood alcohol level of less than 20 mg/100 ml; E87.6 Hypokalemia; E87.1 Hypo-osmolality and hyponatremia; E72.20 Disorder of urea cycle metabolism, unspecified; R74.01 Elevation of levels of liver transaminase levels; K80.20 Calculus of gallbladder without cholecystitis without obstruction; R00.0 Tachycardia, unspecified; K44.9 Diaphragmatic hernia without obstruction or gangrene; R10.9 Unspecified abdominal pain; R06.00 Dyspnea, unspecified; K76.0 Fatty (change of) liver, not elsewhere classified; D64.9 Anemia, unspecified; Z95.2 Presence of prosthetic heart valve
CPT/HCPCS: 36415; 36430; 36600; 70450; 71045; 74177; 76705; 80048; 80053; 80074; 80307; 81001; 82140; 82375; 82550; 82607; 82746; 82805; 82948; 83050; 83605; 83690; 83735; 84443; 84484; 85025; 85055; 85610; 85730; 86140; 93005; 96361; 96365; 96366; 96372; 96374; 96375; 96376; 99285; A9270; G0378; J1650; J2060; J2560; J3360; J3411; J3475; J7030; J7070; P9016; Q9967